=== PATIENT | female | born 2000 | race American Indian/Alaskan Native ===

== ENCOUNTER 2021-08-06 18:22 | Emergency (ER) | payer SELFPAY ==
[2021-08-06 19:28] VITALS: BP 133/79
--- NOTE | 2021-08-06 21:46 | Emergency Department Report ---
ED Headache HPI - General Chief Complaint: Headache Stated Complaint: HEADACHE/CHEST PAIN/OVER HEATED/RASH ON BACK Time Seen by Provider: 08/06/21 21:23 Source: patient - History of Present Illness Initial Comments: Patient 21-year-old -[place] female history of migraine headaches, psoriasis, seasonal allergies. Who presents for frontal headache rated at 4/10 intermittent for the past 3 days. Patient does have history of migraine headaches same location and intensity and duration. Patient concerned today because headaches continues to return. Headaches are temporary relieved by ibuprofen, patient denies decreased vision there is no nausea no vomiting. No dizziness or lightheadedness. Headache is exacerbated by position and movement. pt is currrenly a/o x3 ambulatory with steady gait, and tolerating po intake. Timing/Duration: other (3 days) Quality: moderate Head Injury Location: frontal Modifying Factors: improves with: movement Associated Symptoms: nasal congestion, nasal drainage. denies: confusion, fever/chills, nausea/vomiting, numbness in legs/feet, stiff neck, vision changes, weakness Allergies/Adverse Reactions: Allergies strawberry Allergy (Verified 08/06/21 21:37) Anaphylaxis Home Medications: Ambulatory Orders Acetaminophen [Acetaminophen TAB] 1,000 mg PO Q6HR PRN #30 tablet 08/06/21 Diphenhydramine HCl [Sleep Tabs 25MG] 25 mg PO Q6H PRN #30 tab 08/06/21 Metoclopramide [Reglan] 10 mg PO Q8H PRN #30 tab 08/06/21 ED Review of Systems ROS: Stated complaint: HEADACHE/CHEST PAIN/OVER HEATED/RASH ON BACK Other details as noted in HPI Constitutional: malaise. denies: chills, diaphoresis, fever, weakness Eyes: denies: eye pain, eye discharge, vision change ENT: throat pain, congestion. denies: ear pain Respiratory: denies: cough, shortness of breath, wheezing Cardiovascular: denies: chest pain, palpitations Endocrine: no symptoms reported Gastrointestinal: denies: abdominal pain, nausea, vomiting, diarrhea Genitourinary: denies: urgency, dysuria, discharge Musculoskeletal: denies: back pain, joint swelling, arthralgia Skin: denies: rash, lesions Neurological: headache. denies: weakness, numbness, paresthesias, confusion, abnormal gait, vertigo Psychiatric: denies: anxiety, depression Hematological/Lymphatic: denies: easy bleeding, easy bruising ED Past Medical Hx - Past Medical History Hx Headaches / Migraines: Yes - Medications Home Medications: Home Medications Medication Instructions Recorded Confirmed Last Taken Type Acetaminophen [Acetaminophen TAB] 1,000 mg PO Q6HR PRN #30 tablet 08/06/21 Unknown Rx Diphenhydramine HCl [Sleep Tabs 25 mg PO Q6H PRN #30 tab 08/06/21 Unknown Rx 25MG] Metoclopramide [Reglan] 10 mg PO Q8H PRN #30 tab 08/06/21 Unknown Rx ED Physical Exam - General Limitations: No Limitations General appearance: alert, in no apparent distress - Head Head exam: Present: normocephalic, normal inspection - Eye Eye exam: Present: PERRL, EOMI. Absent: conjunctival injection, nystagmus Pupils: Present: normal accommodation - ENT ENT exam: Present: normal orophraynx, mucous membranes moist, TM's normal bilaterally - Expanded ENT Exam Expanded Ear exam: Present: normal external inspection Throat exam: Positive: other (uvula midline no exudate no lesions no stidor no wheezing ). Negative: tonsillar erythema, tonsillomegaly, tonsillar exudate, R peritonsillar mass, L peritonsillar mass - Neck Neck exam: Present: normal inspection, full ROM. Absent: tenderness, lymphadenopathy, thyromegaly - Respiratory Respiratory exam: Present: normal lung sounds bilaterally, chest wall tenderness. Absent: respiratory distress, wheezes, stridor - Cardiovascular Cardiovascular Exam: Present: regular rate, normal rhythm, normal heart sounds. Absent: systolic murmur, diastolic murmur, rubs, gallop - GI/Abdominal GI/Abdominal exam: Present: soft, normal bowel sounds. Absent: distended, tenderness - Rectal Rectal exam: Present: deferred - Extremities Exam Extremities exam: Present: normal inspection, full ROM, normal capillary refill. Absent: tenderness - Back Exam Back exam: Present: normal inspection. Absent: CVA tenderness (R), CVA tender ness (L) - Neurological Exam Neurological exam: Present: alert, oriented X3, normal gait, reflexes normal. Absent: motor sensory deficit - Expanded Neurological Exam Expanded Patient oriented to: Present: person, place, time Speech: Present: fluid speech Cranial nerves: EOM's Intact: Normal, Gag Reflex: Normal, Tongue Deviation: Normal Motor strength exam: RUE: 5, LUE: 5, RLE: 5, LLE: 5 DTR: knee (L): 1+, ankle (R): 1+ Best Eye Response (Shala): (4) open spontaneously Best Motor Response (Shala): (6) obeys commands Best Verbal Response (Shala): (5) oriented Shala Total: 15 - Psychiatric Psychiatric exam: Present: normal affect, normal mood - Skin Skin exam: Present: warm, dry, intact, normal color. Absent: rash ED Course Vital Signs 08/06/21 08/06/21 19:27 21:52 Temperature 99.8 F H Pulse Rate 106 H Respiratory 16 16 Rate Blood Pressure 133/79 O2 Sat by Pulse 98 Oximetry ED Medical Decision Making - Medical Decision Making Now advises headache is resolved pain is now 0-10. Plan DC to home with prescriptions. Follow-up with your primary care doctor in 2 to 3 days. Continue to hydrate as directed. Return to emergency department should symptoms worsen. Patient verbalized agreement and understanding with discharge plan. Patient DC'd home in stable condition at this time. Critical care attestation.: If time is entered above; I have spent that time in minutes in the direct care of this critically ill patient, excluding procedure time. ED Disposition Clinical Impression: Headache Qualifiers: Headache type: cluster Headache chronicity pattern: episodic headache Intractability: not intractable Qualified Code(s): G44.019 - Episodic cluster headache, not intractable Disposition: 01 HOME / SELF CARE / HOMELESS Is pt being admited?: No Does the pt Need Aspirin: No Condition: Stable Instructions: Cluster Headache Additional Instructions: Take medications as prescribed, hydrate as directed, follow-up with your doctor in 2 to 3 days. Return to emergency department should symptoms worsen. Prescriptions: Acetaminophen [Acetaminophen TAB] 1,000 mg PO Q6HR PRN #30 tablet PRN Reason: Headache Metoclopramide [Reglan] 10 mg PO Q8H PRN #30 tab PRN Reason: Headache Diphenhydramine HCl [Sleep Tabs 25MG] 25 mg PO Q6H PRN #30 tab PRN Reason: Headache Referrals: RITCHIE BAZZI MD [Primary Care Provider] - 3-5 Days Forms: Work/School Release Form(ED) Time of Disposition: 22:37
[2021-08-06] MEDS: predniSONE 20 MG TAB PO ONE ×2 (21:49→22:47)
[2021-08-06] MEDS: METOCLOPRAMIDE 10 MG TAB PO ONE ×2 (21:49→22:45)
[2021-08-06] MEDS: diphenhydrAMINE 25 MG CAP PO ONE ×2 (21:52→22:45)
[2021-08-06] MEDS: ACETAMINOPHEN 500 MG TAB PO ONE ×2 (21:52→22:46)
== END 2021-08-06 23:28 | disposition home or self-care (01) ==
LOC: ED 18:22
DX: G44.019 Episodic cluster headache, not intractable (principal); Z91.018 Allergy to other foods
CPT/HCPCS: 99282